=== PATIENT | male | born 1955 | race Caucasian/White ===

== ENCOUNTER → 2016-07-30 | Outpatient (CLI) | payer MEDICARE ==
[~2016-07-30] MED LIST: ALBUTEROL0.09 MG/A2 IH; ALBUTEROL2.5 MG/0.5 INH; ASCRIPTIN325 MG PO; ATORVASTATIN CA10 MG; BACTRIM DS 8001 TA1 PO; CIPRO500 MG PO; COREG12.5 MG PO; DOXYCYCLINE HY100 M3 PO; DUONEB 3 MG/3 ML3 M1 INH; GLYBURIDE5 MG PO; KEFLEX500 MG PO; LASIX20 MG; LASIX20 MG PO; LISINOPRIL5 MG PO; METFORMIN500 MG PO; MEVACOR20 MG PO; NKHM; OXYGEN NAS; PLAVIX75 MG PO; PREDNISONE10 MG PO; PREDNISONE20 M1 PO; PROVENTIL0.09 MG/A1 INH; PULMICORT RES0.25 MG INH; TANZEUM30 MG SC; VIBRAMYCIN100 MG PO
== END ==
LOC: US 08:48
DX: R79.89 Other specified abnormal findings of blood chemistry (principal); I10 Essential (primary) hypertension; E11.51 Type 2 diabetes mellitus with diabetic peripheral angiopathy without gangrene

== ENCOUNTER 2017-03-19 14:39 | Inpatient (IN) | payer MEDICARE ==
[~2017-03-19] VITALS: Ht 187.9 cm; Wt 127.0 kg
--- NOTE | ~2017-03-19 | CON ---
[place], [place] REPORT OF CONSULTATION NAME: ZACH GONZALES [facility] #: [id number] UNIT #: [id number] ROOM: 521 DOCTOR: NIKKI MCCONNELL MD BIRTHDATE: [birth year] DOS: 03/20/2017 HISTORY OF PRESENT ILLNESS: This is a 61-year-old -[place] man with history of coronary artery disease with moderately reduced LV systolic function by an echocardiogram previously. He has coronary artery disease, has moderate obesity, hyperlipidemia, type 2 diabetes mellitus and obstructive sleep apnea and COPD. He has had right knee arthroscopy done and coronary stents deployed in the remote past. He does not smoke, nor does he drink alcoholic beverages. Lives at home with his . He noted increasing cough, chest congestion and some expectoration with the sputum was not discolored. He had a rather acute worsening of shortness of breath. He had no chest pain or palpitations, has not had any swelling of the legs either. No swelling of the legs, has not had any nausea, vomiting or blood in the stools. No chills or shivering. HOME MEDICATIONS: Included Tanzeum, ProAir HFA, aspirin, carvedilol, Lasix, glyburide, Levaquin, lisinopril, Mevacor, metformin and oxygen 3 liters per minute at home by nasal cannula, prednisone 10 mg every other day. PHYSICAL EXAMINATION: GENERAL: This reveals a patient who is very pleasant, alert, moderately obese. His complexion is fine. He has oxygen on and is mildly tachypneic. There is no cyanosis. There is no thyromegaly or finger clubbing is present. VITAL SIGNS: Pulse is regular at 76 beats per minute, blood pressure 154/80. NECK: JVP was normal. HEART: Cardiac auscultation with no murmurs or rubs. No edema in the lower extremity. Pedal pulses were palpable. CHEST: Percussion note was normal. Auscultation revealed moderately diminished breath sounds with expiratory and inspiratory crackles and wheezing. Expiratory phase was significantly prolonged. IMPRESSION: This patient has ischemic cardiomyopathy, but there is no clinical or radiographic evidence of heart failure. I think his symptoms are mostly from exacerbation of chronic obstructive pulmonary disease and I believe a pulmonary consult has been obtained. Current cardiac medication should be continued. [place], [place] REPORT OF CONSULTATION NAME: ZACH GONZALES UNIT #: [id number] ROOM: 521 DOCTOR: NIKKI MCCONNELL MD BIRTHDATE: [birth year] NIKKI MCCONNELL MD CM:CONSTR:REPORT OF CONSULTATION 1238 03/25/17 1836 interface
--- NOTE | ~2017-03-19 | CON ---
[place], [place] REPORT OF CONSULTATION NAME: ZACH GONZALES [facility] #: [id number] UNIT #: [id number] ROOM: 521 DOCTOR: JUSTINA STANLEY MD BIRTHDATE: [birth year] DOS: 03/20/2017 The patient was independently seen and examined in [id number] encounter, history was personally obtained from the patient, physical findings for the patient was also confirmed during today's assessment. All the available labs including the chest x-ray personally reviewed. Assessment and management of the patient was done for today's visit personally as well. The note done by the medical secretary was approved. CONSULTATION REQUESTED BY: Hospitalist services for assessment of the acute exacerbation of COPD. HISTORY OF PRESENT ILLNESS: A 61-year-old white male noted in his usual state of health until beginning of this week. The patient's was noted with acute illness with respiratory symptom. Later on, the patient started having symptoms of coughing, chest congestion and some sputum expectoration. He was noted with shortness breath, was noted significantly increased. Low-grade fever was noted. The cough has been associated with intermittent sputum expectoration. The patient came to the hospital. The patient's symptoms have been noted worse with shortness of breath and others. He has been admitted to the hospital for further medical management and acute exacerbation of COPD. REVIEW OF SYSTEMS: Review of systems for this patient was performed by the medical secretary already and agreed with that. PAST MEDICAL HISTORY: The patient was noted with history of: 1. COPD. 2. Uncomplicated moderate persistent bronchial asthma. 3. Type 2 diabetes mellitus. 4. Obstructive sleep apnea disorder. 5. Coronary artery disease. 6. Ischemic cardiomyopathy. The patient with ejection fraction 30%, last from the past. 7. Moderate obesity. 8. Hypercholesterolemia. PAST SURGICAL HISTORY: 1. Cardiac catheterization and coronary artery stent insertion. 2. Right knee arthroscopy. 3. Fibrobronchoscopy that was done in 2014. SOCIAL HISTORY: The patient is , has 2 children. 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 There was no history of alcohol use or any illicit drug use. FAMILY HISTORY: Both parents have been at the age of 70+ years old, complication for the patient in the mother was noted cerebral hemorrhage and father with complication related to sudden cardiac . MEDICATIONS: Current medications which has been taken by the patient in the [place], [place] REPORT OF CONSULTATION NAME: ZACH GONZALES UNIT #: [id number] ROOM: 521 DOCTOR: MICHELLE SMITH MD,JUSTINA BIRTHDATE: [birth year] home settings were noted as use of temazepam, Proventil HFA inhaler, Coreg, Lasix, glyburide, DuoNeb, lisinopril, lovastatin, metformin, oxygen, CPAP and Symbicort HFA inhaler. DRUG ALLERGIES: No known drug allergies. PHYSICAL EXAMINATION: GENERAL: This is a 61-year-old white male, currently sitting comfortably on the side of the bed without any acute distress at time of assessment. VITAL SIGNS: Height of 6 feet 1 inch, weight of 280 pounds, BMI 35.6. Normal temperature, respiratory rate 18-23, heart rate 67-75, blood pressure 131/74-154/80. Intake 1520, output 1300 mL, pulse oxygen saturation was noted as 93% saturation to an half liter nasal cannula. HEENT: Examination shows head was atraumatic. Eyes nonicterus. NECK: Supple. It was obese. Decreased posterior pharyngeal space, high tongue base and crowding of soft tissue structures. CARDIOVASCULAR: S1, S2 is audible. LUNGS: Noted with moderate decreased breath sounds in the lungs. Scattered expiratory wheezing. There were no crackles. ABDOMEN: Soft, obese, nontender. EXTREMITIES: Noted without any edema, clubbing or cyanosis. LABORATORY DATA: Lactic acid yesterday was noted normal. CBC yesterday was noted as normal. PT/PTT normal. CMP of the patient yesterday, glucose 279, BUN and creatinine was normal. The influenza A and B, nasal washing antigens were noted as normal from yesterday. CBC this morning remains normal. The CMP, patient's glucose 325, sodium 135. Other labs were normal. Chest x-ray 1 view that was done on 03/19/2017 was noted without any acute pulmonary infiltration. IMPRESSION: 1. The patient has been noted current acute exacerbation of bronchial asthma, which has been noted in the past, uncomplicated, moderate, persistent with superimposed acute bronchitis and history of chronic hypoxic respiratory failure, use of oxygen. 2. History of obstructive sleep apnea disorder. 3. Chronic obesity. There was no evidence of acute pneumonia, uncontrolled diabetes mellitus for this patient was also noted on admission as well. PLAN OF MANAGEMENT: From the pulmonary standpoint, the patient could be discharged home on tapering dose of prednisone and oral antibiotics for the patient to be taken. Continue his home medication including nebulizer treatment q.4-6h. to improve the respiratory symptom. Outpatient followup to be made in the office for further assessment in case of other problems. The patient could use his CPAP after resolution of the acute symptoms occurred. Thanks for allowing me to participate in the care of this patient. [place], [place] REPORT OF CONSULTATION NAME: ZACH GONZALES UNIT #: [id number] ROOM: 521 DOCTOR: JUSTINA STANLEY MD BIRTHDATE: [birth year] JUSTINA MARTINEZ MD CM:CONSTR:REPORT OF CONSULTATION 1107 03/20/17 1351 interface
--- NOTE | ~2017-03-19 | CON ---
[place], [place] REPORT OF CONSULTATION NAME: ZACH GONZALES [facility] #: [id number] UNIT #: [id number] ROOM: 521 DOCTOR: SHANIQUA REAVES DO BIRTHDATE: [birth year] DOS: 03/20/2017 REASON FOR CONSULTATION: COPD exacerbation. CHIEF COMPLAINT: Shortness of breath. HISTORY OF PRESENT ILLNESS: The patient is a 61-year-old male who presented to the ER last night with shortness of breath and cough. He states the symptoms have been present for several days now. His had been seen in the office last week with a similar respiratory complaint and she was treated by Dr. Martinez. The patient states that his symptoms have worsened over the past couple of nights and he has been having more sputum production. He denies fevers, but has been generally feeling unwell with malaise and tiredness. Otherwise, he states that his symptoms seem to have improved quite significantly since his admission from the ER. PAST MEDICAL HISTORY: Anemia, asthma, CAD, CHF, cholelithiasis, diverticulosis, morbid obesity, thrombocytopenia with hypersplenism. PAST SURGICAL HISTORY: History of cardiac catheterization and history of knee surgery. SOCIAL HISTORY: Nonsmoker, nondrinker, does not use any drugs. FAMILY HISTORY: Father had an [place] in his 50s and his mother had a cerebral aneurysm. DRUG ALLERGIES: No known drug allergies. HOME MEDICATIONS: Tanzeum 30 mg weekly, Proventil as needed, Coreg 25 b.i.d., Cipro 500 b.i.d., doxycycline 100 b.i.d., Lasix 20 mg b.i.d., glyburide 10 b.i.d., lisinopril 10 daily, lovastatin 20 mg daily, metformin 1000 b.i.d. plus 500 daily. REVIEW OF SYSTEMS: GENERAL: Reports chills, but denies weight loss, weight gain. HEENT: Denies vision change, hearing change, nasal discharge, mouth swelling, congestion, throat pain, or dysphagia. CARDIOVASCULAR: Reports chest tightness, but denies angina. Denies palpitations. Denies lower extremity edema. RESPIRATORY: Reports shortness of breath, cough, wheezing, dyspnea on exertion and sputum production, but denies any hemoptysis. ABDOMINAL: Denies abdominal pain, nausea, vomiting, diarrhea. GENITOURINARY: Denies any dysuria, hematuria. NEUROLOGIC: Denies lightheadedness, dizziness. PSYCHIATRIC: Denies depression, anxiety, substance abuse. ENDOCRINE: Denies any polydipsia, heat or cold intolerance. SKIN: Denies any new lesions or ulcerations. PHYSICAL EXAMINATION: [place], [place] REPORT OF CONSULTATION NAME: ZACH GONZALES UNIT #: [id number] ROOM: 521 DOCTOR: SHANIQUA REAVES DO BIRTHDATE: [birth year] VITAL SIGNS: Temperature 98.7, pulse 75, respiratory rate 20, blood pressure 154/80, bedside pulse oximetry 93% on 2.5 L nasal cannula. GENERAL: The patient is awake, alert, oriented, in no acute distress. HEART: Regular rate and rhythm. No gallops or murmur. HEAD: Normocephalic, atraumatic. EYES: No lesions, ulcerations, not icteric. ENT: No scars, masses, or drainage. NECK: Without masses, supple and nontender. LUNGS: Some cough, scattered wheezes with diminishing breath sounds, but no rhonchi, rales or crackles. ABDOMEN: Soft, nontender, nondistended. EXTREMITIES: No clubbing, no erythema, no edema. NEUROLOGIC: Grossly intact. Ambulates well without any focal neuro deficits. PSYCHOLOGICAL: Good historian. Good recent memory and remote memory. SKIN: No rashes, no ulcerations. LABORATORY DATA: WBC 5.4, HGB 14.5, HCT 41.0, and platelet count is 83. Sodium 135, potassium 4.5, chloride 101, carbon dioxide 22, BUN 19, creatinine 1.12, GFR is more than 60. Glucose is 325, A1c 8.3. Vitamin B12 359, vitamin D 16.1, folate . Blood cultures pending. RADIOLOGY: Chest x-ray read as hyperaerated lungs without acute pulmonary disease per radiology. ASSESSMENT: 1. Acute respiratory failure, likely from acute bronchitis superimposed on chronic asthma. 2. Chronic obstructive pulmonary disease. 3. Diabetes mellitus type 2. 4. Hyperlipidemia. 5. Congestive heart failure. TREATMENT PLAN: We will continue with the current plan with treatment with Levaquin and steroids. The patient has improved significantly in a short time that he has been here and he is okay to be discharged today, actually continuing with the Levaquin and prednisone at home. Otherwise, if any further details are needed, please see Dr. Martinez's note. SHANIQUA REAVES DO [place], [place] REPORT OF CONSULTATION NAME: ZACH GONZALES UNIT #: [id number] ROOM: 521 DOCTOR: SHANIQUA REAVES DO BIRTHDATE: [birth year] JUSTINA MARTINEZ MD CM:CONSTR:REPORT OF CONSULTATION 1106 03/20/17 1207 interface
[2017-03-19 14:42] VITALS: BP 162/88
[2017-03-19 15:36] LABS: BASO % 0.2 % (0.0-1.0); EOS # 0.1 10*3/uL (0.0-0.4); EOS % 0.7 % (1.0-4.0); HEMATOCRIT 42.3 % (42.0-52.0); HEMOGLOBIN 14.8 g/dl (14.0-18.0); LYMPH # 1.7 10*3/uL (1.3-4.4); LYMPH % 19.8 % (27.0-41.0); MEAN CORPUSCULAR HGB 32.2 pg (27.0-31.0); MEAN PLATELET VOLUME 9.8 fl (9.6-12.3); MONO # 0.6 10*3/uL (0.1-1.0); MONO % 6.9 % (3.0-9.0); PLATELET COUNT AUTOMATED 82 10*3/uL (130-400); RED CELL DISTRI WIDTH 13.6 % (0-14.5); WHITE BLOOD COUNT 8.4 10*3/uL (4.8-10.8)
[2017-03-19 15:45] LABS: ACT PARTIAL THROMBO TIME 26.9 SECONDS (20.8-31.5)
[2017-03-19 15:51] LABS: ALBUMIN 3.4 gm/dl (3.1-4.5); ALKALINE PHOSPHATASE 70 U/L (45-117); BUN 19 mg/dl (7-24); CHLORIDE 104 mmol/L (98-107); CREATININE 1.22 mg/dL (0.70-1.30); LIPASE 257 U/L (73-393); POTASSIUM 4.1 mmol/L (3.5-5.1); SGOT/AST 15 IU/L (3-35); SGPT/ALT 37 U/L (12-78); SODIUM 137 mmol/L (136-145); TOTAL PROTEIN 7.2 gm/dL (6.4-8.2)
[2017-03-19 15:53] LABS: TROPONIN I < 0.015 ng/ml (<0.045)
[2017-03-19 16:03] VITALS: BP 139/71
[2017-03-19 17:03] VITALS: BP 141/83
[2017-03-19 17:30] VITALS: BP 152/90
--- NOTE | 2017-03-19 18:00 | NUR ---
A 61, admitted to 5E, under the services of CEASAR Herrera DO with a diagnosis of COPD EXACERBATION. Chief complaint is SOB. Patient arrived via bed from ER. Monitor applied. Initial assessment completed. Vital signs taken and recorded. CEASAR HERRERA DO notified of admission to the unit. Orders received. See assessment for past medical history, medications and allergies. Patient and/or family oriented to unit. [facility] visitation policy reviewed. Clothing/patient valuable form completed. JOSEF PHILLIPS
--- NOTE | 2017-03-19 18:04 | NUR ---
SPOKE WITH DR. GEE REGARDING CONSULT. HE STATES HE WILL BE OOT STARTING TOMORROW BUT DR. BALL IS COVERING. HE ALSO STATED HE WILL SPEAK TO RAYSHAWN POTTER REGARDING CONSULT.
--- NOTE | 2017-03-19 18:04 | NUR ---
DR. MARTINEZ NOTIFIED OF CONSULT.
[2017-03-19] MEDS ORDERED: SYMB160 INH (18:33)
[2017-03-19] MEDS ORDERED: PROAIR HFA8.5 GM INH (18:33)
[2017-03-19] MEDS ORDERED: ASPIRIN ADULT L81 M1 PO (18:34)
--- NOTE | 2017-03-19 19:45 | NUR ---
PT AWAKE AND ALERT, NO COMPLAINTS AT THIS TIME.
--- NOTE | 2017-03-19 19:55 | NUR ---
DR. Raymond PADILLA CALLED AT THIS TIME TO REQUEST PATIENTS HOMEMEDICATIONS TO BE ORDERED. PER DR. PADILLA SHE WILL ORDERE THESE IN JUST A FEW MINUTES.
[2017-03-19 20:00] VITALS: BP 151/93
[2017-03-20] VITALS: BP 131/70
[2017-03-20 06:52] LABS: HEMOGLOBIN 14.5 g/dl (14.0-18.0); LYMPH # 1.1 10*3/uL (1.3-4.4); LYMPH % 19.4 % (27.0-41.0); MEAN CELL VOLUME 90.9 fl (80.0-94.0); MEAN CORPUSCULAR HGB 32.2 pg (27.0-31.0); MEAN CORPUSCULAR HGB CONC 35.4 g/dl (33.0-37.0); MEAN PLATELET VOLUME 9.7 fl (9.6-12.3); MONO # 0.1 10*3/uL (0.1-1.0); MONO % 1.7 % (3.0-9.0); NEUT # 4.3 10*3/uL (2.3-7.9); NEUT % 78.5 % (47.0-73.0); PLATELET COUNT AUTOMATED 83 10*3/uL (130-400); RED BLOOD COUNT 4.51 10*6/uL (4.50-5.90); RED CELL DISTRI WIDTH 13.1 % (0-14.5); WHITE BLOOD COUNT 5.4 10*3/uL (4.8-10.8)
[2017-03-20 07:31] LABS: ALBUMIN 3.5 gm/dl (3.1-4.5); ALKALINE PHOSPHATASE 70 U/L (45-117); BUN 19 mg/dl (7-24); CHLORIDE 101 mmol/L (98-107); CHOLESTEROL 113 mg/dL (<200); POTASSIUM 4.5 mmol/L (3.5-5.1); SODIUM 135 mmol/L (136-145); TRIGLYCERIDES 53 mg/dl (<150); VLDL CHOLESTEROL 11 mg/dL (6-40)
[2017-03-20 07:39] LABS: CREATININE 1.12 mg/dL (0.70-1.30); FREE T4 1.23 ng/dl (0.76-1.46); HDL CHOLESTEROL 45 mg/dl (40-60); LDL CHOLESTEROL 57 mg/dL (9-159); PHOSPHOROUS 2.9 mg/dL (2.5-4.9); SGOT/AST 19 IU/L (3-35); SGPT/ALT 40 U/L (12-78); THYROID STIM HORMONE (HS) 0.396 uIU/ml (0.358-4.75); TOTAL PROTEIN 7.2 gm/dL (6.4-8.2)
[2017-03-20 07:51] LABS: VITAMIN D, 25-HYDROXY 16.1 ng/mL (30-100)
[2017-03-20 08:00] VITALS: BP 154/80
--- NOTE | 2017-03-20 09:00 | NUR ---
Web Merchandiser in to talk to patient. Patient states lives at home with . There are few steps in the home. Physician: sunny tillman Pharmacy: [facility] health services: none Patient's level of ADLs: INDEPENDENT Patient has working utilities: all working DME: cpap Follow-up physician's appointment after d/c: will be made by hosplitalist nurse director upon discharge Does patient want to access PORTAL?: no Discharge plan discussed with patient, patient lives at home with his , he is independent in adls and ambulation, patient states he will be going home with and denies any home needs. ANA CESAR
[2017-03-20] MEDS ORDERED: LEVOFLOXACIN500 MG PO (09:50)
[2017-03-20] MEDS ORDERED: PREDNISONE10 MG PO (09:50)
[2017-03-20 12:00] VITALS: BP 152/87
--- NOTE | 2017-03-20 12:36 | NUR ---
DR. MCCONNELL IN TO SEE PATIENT AND DISCUSS ECHO.
--- NOTE | 2017-03-20 12:57 | NUR ---
PATIENT RESTING IN BED. PATIENT DENIES ANY SOB, DISCOMFORT OR PAIN. PATIENT IS RECEIVING 3LPM VIA NC AND HAS EXP WHEEZES. PATIENT DENIES ANY CHEST PAIN OR DIZZINESS UPON ASSESSMENT. PATIENT IS AMBULATORY. A&OX3, CALL LIGHT WITHIN REACH, HOB ELEVATED. SEE ASSESSMENT.
--- NOTE | 2017-03-20 17:02 | NUR ---
Discharge instructions reviewed with patient/family. Patient receptive and verbalizes understanding. Follow-up care DISCUSSED WITH PATIENT. Written instructions given to patient/family. ANA LAURA HAMMONDS
== END 2017-03-20 17:02 | disposition home or self-care (01) | DRG 871 ==
LOC: ED 14:39 → 5E 16:14 → EDHOLD 16:14 → 5E 16:22
PROVIDERS: Emergency Medicine; Registered Nurse; ADMIT Internal Medicine
DX: A41.9 Sepsis, unspecified organism (principal); J18.9 Pneumonia, unspecified organism; J96.21 Acute and chronic respiratory failure with hypoxia; E44.0 Moderate protein-calorie malnutrition; D69.6 Thrombocytopenia, unspecified; I50.9 Heart failure, unspecified; E66.01 Morbid (severe) obesity due to excess calories; J44.0 Chronic obstructive pulmonary disease with (acute) lower respiratory infection; J44.1 Chronic obstructive pulmonary disease with (acute) exacerbation; R16.1 Splenomegaly, not elsewhere classified; R65.20 Severe sepsis without septic shock; E11.9 Type 2 diabetes mellitus without complications; I25.10 Atherosclerotic heart disease of native coronary artery without angina pectoris; K80.20 Calculus of gallbladder without cholecystitis without obstruction; K57.90 Diverticulosis of intestine, part unspecified, without perforation or abscess without bleeding; J20.9 Acute bronchitis, unspecified; E78.00 Pure hypercholesterolemia, unspecified; D53.9 Nutritional anemia, unspecified; I25.5 Ischemic cardiomyopathy; G47.33 Obstructive sleep apnea (adult) (pediatric); Z95.5 Presence of coronary angioplasty implant and graft; Z82.49 Family history of ischemic heart disease and other diseases of the circulatory system; Z87.891 Personal history of nicotine dependence; Z79.82 Long term (current) use of aspirin; Z79.84 Long term (current) use of oral hypoglycemic drugs; Z79.51 Long term (current) use of inhaled steroids; Z99.81 Dependence on supplemental oxygen; Z79.899 Other long term (current) drug therapy; Z68.30 Body mass index [BMI] 30.0-30.9, adult

== ENCOUNTER → 2017-09-17 | Outpatient (CLI) | payer MEDICARE ==
[~2017-09-17] MED LIST changes: +ASPIRIN ADULT L81 M1 PO; +LEVOFLOXACIN500 MG PO; +PROAIR HFA8.5 GM INH; +SYMB160 INH
== END | disposition home or self-care (01) ==
LOC: RESCLI 01:23
DX: E11.9 Type 2 diabetes mellitus without complications (principal); I10 Essential (primary) hypertension; J44.9 Chronic obstructive pulmonary disease, unspecified; E78.5 Hyperlipidemia, unspecified; M19.90 Unspecified osteoarthritis, unspecified site; E66.9 Obesity, unspecified; R60.9 Edema, unspecified; Z87.891 Personal history of nicotine dependence

== ENCOUNTER → 2018-02-21 | Outpatient (CLI) | payer MEDICARE ==
[~2018-02-21] MED LIST changes: +ADVAIR 250/501 EA INH; +DOXYCYCLINE100 M3 PO; +GLUCOPHAGE1000 MG PO; +GLUCOPHAGE500 M1 PO; +PROVENTIL HFA6.7 GM INH; +TESSALON PERLE100 M1 PO; +TRAD5TAB1 PO; +VYETTA SQ
== END | disposition home or self-care (01) ==
LOC: RESCLI 00:56
DX: E11.65 Type 2 diabetes mellitus with hyperglycemia (principal); I10 Essential (primary) hypertension; J44.9 Chronic obstructive pulmonary disease, unspecified; E78.5 Hyperlipidemia, unspecified; M19.90 Unspecified osteoarthritis, unspecified site; E66.9 Obesity, unspecified; L98.9 Disorder of the skin and subcutaneous tissue, unspecified; E11.51 Type 2 diabetes mellitus with diabetic peripheral angiopathy without gangrene; Z79.899 Other long term (current) drug therapy; Z79.84 Long term (current) use of oral hypoglycemic drugs; Z87.891 Personal history of nicotine dependence

== ENCOUNTER → 2018-03-25 | Outpatient (CLI) | payer MEDICARE | LOC: RESCLI 00:44 | DX: I10 Essential (primary) hypertension (principal); M19.90 Unspecified osteoarthritis, unspecified site; R60.9 Edema, unspecified; J44.1 Chronic obstructive pulmonary disease with (acute) exacerbation; E66.01 Morbid (severe) obesity due to excess calories; I25.2 Old myocardial infarction; G89.29 Other chronic pain; I25.10 Atherosclerotic heart disease of native coronary artery without angina pectoris; E78.5 Hyperlipidemia, unspecified; E11.51 Type 2 diabetes mellitus with diabetic peripheral angiopathy without gangrene; E11.65 Type 2 diabetes mellitus with hyperglycemia; Z79.82 Long term (current) use of aspirin; Z79.4 Long term (current) use of insulin; Z68.39 Body mass index [BMI] 39.0-39.9, adult; Z79.899 Other long term (current) drug therapy; Z87.891 Personal history of nicotine dependence ==

== ENCOUNTER → 2018-04-09 | Outpatient (CLI) | payer MEDICARE | END | disposition home or self-care (01) | LOC: LAB 15:26 | DX: R05 Cough (principal) ==

== ENCOUNTER 2018-06-29 16:50 | Emergency (ER) | payer MEDICARE ==
[~2018-06-29] VITALS: Ht 180.3 cm; Wt 133.4 kg
[2018-06-29 17:47] LABS: BASO # 0.1 10*3/uL (0.0-0.1); BASO % 0.3 % (0.0-1.0); EOS % 0.2 % (1.0-4.0); HEMATOCRIT 45.2 % (42.0-52.0); HEMOGLOBIN 15.8 g/dl (14.0-18.0); LYMPH # 1.6 10*3/uL (1.3-4.4); LYMPH % 9.6 % (27.0-41.0); MEAN CELL VOLUME 96.4 fl (80.0-94.0); MEAN CORPUSCULAR HGB 33.7 pg (27.0-31.0); MEAN PLATELET VOLUME 9.6 fl (9.6-12.3); MONO # 1.1 10*3/uL (0.1-1.0); MONO % 6.9 % (3.0-9.0); NEUT # 13.6 10*3/uL (2.3-7.9); NEUT % 82.7 % (47.0-73.0); PLATELET COUNT AUTOMATED 102 10*3/uL (130-400); RED BLOOD COUNT 4.69 10*6/uL (4.50-5.90); RED CELL DISTRI WIDTH 13.9 % (0-14.5); WHITE BLOOD COUNT 16.5 10*3/uL (4.8-10.8)
[2018-06-29 17:57] LABS: ACT PARTIAL THROMBO TIME 27.8 SECONDS (20.8-31.5); INTERNATIONAL NORM RATIO 1.1 (2.0-3.5)
[2018-06-29 18:12] LABS: ALBUMIN 3.8 gm/dl (3.1-4.5); ALKALINE PHOSPHATASE 66 U/L (45-117); BUN 10 mg/dl (7-24); CHLORIDE 103 mmol/L (98-107); SGOT/AST 14 IU/L (3-35); SGPT/ALT 24 U/L (12-78); SODIUM 135 mmol/L (136-145); TOTAL PROTEIN 7.3 gm/dL (6.4-8.2)
[2018-06-29 18:17] LABS: TROPONIN I < 0.015 ng/ml (<0.045)
[2018-06-29 18:29] LABS: BILIRUBIN NEGATIVE (NEGATIVE); BLOOD NEGATIVE (NEGATIVE); CLARITY SL CLOUDY (CLEAR); COLOR YELLOW (YELLOW); GLUCOSE 1+ (NEGATIVE); KETONE TRACE (NEGATIVE); LEUKO ESTERASE NEGATIVE (NEGATIVE); NITRITE NEGATIVE (NEGATIVE); PH 6.5 (5.0-9.0); UROBILINOGEN 0.2 E.U./dl (0.2-1.0)
[2018-06-29 18:41] LABS: BACTERIA TRACE
== END 2018-06-29 20:00 | disposition short-term general hospital (02) ==
LOC: ED 16:50
PROVIDERS: Emergency Medicine
DX: A41.9 Sepsis, unspecified organism (principal); N45.2 Orchitis; D69.6 Thrombocytopenia, unspecified; I42.9 Cardiomyopathy, unspecified; E11.9 Type 2 diabetes mellitus without complications; I25.10 Atherosclerotic heart disease of native coronary artery without angina pectoris; I50.9 Heart failure, unspecified; J44.9 Chronic obstructive pulmonary disease, unspecified; E78.5 Hyperlipidemia, unspecified; E66.01 Morbid (severe) obesity due to excess calories; Z79.2 Long term (current) use of antibiotics; Z79.899 Other long term (current) drug therapy; Z79.82 Long term (current) use of aspirin; Z79.84 Long term (current) use of oral hypoglycemic drugs; Z87.891 Personal history of nicotine dependence

== ENCOUNTER → 2018-10-02 | Outpatient (CLI) | payer MEDICARE | END | disposition home or self-care (01) | LOC: RESCLI 01:46 | DX: J44.1 Chronic obstructive pulmonary disease with (acute) exacerbation (principal); E11.9 Type 2 diabetes mellitus without complications; I25.2 Old myocardial infarction; E78.5 Hyperlipidemia, unspecified; R60.9 Edema, unspecified; I10 Essential (primary) hypertension; Z87.891 Personal history of nicotine dependence; Z79.899 Other long term (current) drug therapy ==

== ENCOUNTER → 2018-12-23 | Outpatient (CLI) | payer MEDICARE | END | disposition home or self-care (01) | LOC: RESCLI 01:33 | DX: E11.9 Type 2 diabetes mellitus without complications (principal); I10 Essential (primary) hypertension; R60.9 Edema, unspecified; J44.1 Chronic obstructive pulmonary disease with (acute) exacerbation; I25.2 Old myocardial infarction; E78.5 Hyperlipidemia, unspecified; D69.6 Thrombocytopenia, unspecified; Z87.891 Personal history of nicotine dependence; Z79.899 Other long term (current) drug therapy; Z88.8 Allergy status to other drugs, medicaments and biological substances ==

== ENCOUNTER 2019-02-06 15:55 | Emergency (ER) | payer MEDICARE ==
[~2019-02-06] VITALS: Ht 180.3 cm; Wt 124.3 kg
[2019-02-06 16:33] LABS: BASO % 0.4 % (0.0-1.0); EOS # 0.2 10*3/uL (0.0-0.4); EOS % 2.1 % (1.0-4.0); HEMOGLOBIN 15.4 g/dl (14.0-18.0); LYMPH # 2.5 10*3/uL (1.3-4.4); LYMPH % 26.1 % (27.0-41.0); MEAN CELL VOLUME 97.4 fl (80.0-94.0); MEAN CORPUSCULAR HGB 33.3 pg (27.0-31.0); MEAN CORPUSCULAR HGB CONC 34.2 g/dl (33.0-37.0); MEAN PLATELET VOLUME 9.7 fl (9.6-12.3); MONO # 0.7 10*3/uL (0.1-1.0); MONO % 7.1 % (3.0-9.0); NEUT # 6.1 10*3/uL (2.3-7.9); NEUT % 63.9 % (47.0-73.0); PLATELET COUNT AUTOMATED 110 10*3/uL (130-400); RED BLOOD COUNT 4.62 10*6/uL (4.50-5.90); RED CELL DISTRI WIDTH 13.5 % (0-14.5); WHITE BLOOD COUNT 9.5 10*3/uL (4.8-10.8)
[2019-02-06 16:48] LABS: ALBUMIN 3.6 gm/dl (3.1-4.5); ALKALINE PHOSPHATASE 59 U/L (45-117); BUN 18 mg/dl (7-24); CHLORIDE 108 mmol/L (98-107); CREATININE 1.29 mg/dL (0.70-1.30); POTASSIUM 3.9 mmol/L (3.5-5.1); SGOT/AST 15 IU/L (3-35); SGPT/ALT 36 U/L (12-78); SODIUM 139 mmol/L (136-145); TOTAL PROTEIN 6.9 gm/dL (6.4-8.2)
[2019-02-06] MEDS ORDERED: DOXYCYCLINE100 M3 PO ×2 (17:11→17:13)
== END 2019-02-06 17:30 | disposition home or self-care (01) ==
LOC: ED 15:55
PROVIDERS: Nurse Practitioner Family
DX: S81.801A Unspecified open wound, right lower leg, initial encounter (principal); L03.115 Cellulitis of right lower limb; I25.10 Atherosclerotic heart disease of native coronary artery without angina pectoris; J44.9 Chronic obstructive pulmonary disease, unspecified; E78.5 Hyperlipidemia, unspecified; E66.01 Morbid (severe) obesity due to excess calories; I50.9 Heart failure, unspecified; E11.9 Type 2 diabetes mellitus without complications; Z79.2 Long term (current) use of antibiotics; Z79.899 Other long term (current) drug therapy; Z79.82 Long term (current) use of aspirin; Z87.891 Personal history of nicotine dependence; W22.8XXA Striking against or struck by other objects, initial encounter; Y93.89 Activity, other specified; Y92.89 Other specified places as the place of occurrence of the external cause; Y99.8 Other external cause status

== ENCOUNTER → 2019-03-03 | Outpatient (CLI) | payer MEDICARE | END | disposition home or self-care (01) | LOC: RESCLI 01:41 | DX: J44.1 Chronic obstructive pulmonary disease with (acute) exacerbation (principal); I10 Essential (primary) hypertension; R60.9 Edema, unspecified; I25.2 Old myocardial infarction; I25.10 Atherosclerotic heart disease of native coronary artery without angina pectoris; E11.51 Type 2 diabetes mellitus with diabetic peripheral angiopathy without gangrene; E78.5 Hyperlipidemia, unspecified; Z79.84 Long term (current) use of oral hypoglycemic drugs; Z79.899 Other long term (current) drug therapy; Z88.8 Allergy status to other drugs, medicaments and biological substances ==

== ENCOUNTER → 2019-03-18 | Outpatient (CLI) | payer MEDICARE ==
[2019-03-18 08:30] LABS: CREATININE 1.29 mg/dL (0.70-1.30)
== END | disposition home or self-care (01) ==
LOC: LAB 01:15 → CT 09:00 → LAB 09:00
DX: K57.90 Diverticulosis of intestine, part unspecified, without perforation or abscess without bleeding (principal); D73.9 Disease of spleen, unspecified; R16.1 Splenomegaly, not elsewhere classified; K76.0 Fatty (change of) liver, not elsewhere classified; K80.20 Calculus of gallbladder without cholecystitis without obstruction

== ENCOUNTER → 2019-06-16 | Outpatient (CLI) | payer MEDICARE | END | disposition home or self-care (01) | LOC: RESCLI 02:04 | DX: I10 Essential (primary) hypertension (principal); E11.9 Type 2 diabetes mellitus without complications; J44.1 Chronic obstructive pulmonary disease with (acute) exacerbation; I25.2 Old myocardial infarction; E78.5 Hyperlipidemia, unspecified; R60.9 Edema, unspecified; Z91.14 Patient's other noncompliance with medication regimen; Z79.899 Other long term (current) drug therapy; Z87.891 Personal history of nicotine dependence ==

== ENCOUNTER → 2019-10-01 | Outpatient (CLI) | payer MEDICARE | END | disposition home or self-care (01) | LOC: RESCLI 00:30 | DX: S81.801D Unspecified open wound, right lower leg, subsequent encounter (principal); X58.XXXD Exposure to other specified factors, subsequent encounter; J44.9 Chronic obstructive pulmonary disease, unspecified; I10 Essential (primary) hypertension; E11.9 Type 2 diabetes mellitus without complications; R60.9 Edema, unspecified; I25.2 Old myocardial infarction; E78.5 Hyperlipidemia, unspecified; Z11.59 Encounter for screening for other viral diseases; Z87.891 Personal history of nicotine dependence; Z95.828 Presence of other vascular implants and grafts; Z79.84 Long term (current) use of oral hypoglycemic drugs; Z79.82 Long term (current) use of aspirin; Z79.899 Other long term (current) drug therapy; Z98.890 Other specified postprocedural states ==

== ENCOUNTER → 2019-12-31 | Outpatient (CLI) | payer MEDICARE ==
[2019-12-31 11:15] LABS: BASO # 0.1 10*3/uL (0.0-0.1); BASO % 0.8 % (0.0-1.0); EOS # 0.2 10*3/uL (0.0-0.4); EOS % 2.6 % (1.0-4.0); HEMATOCRIT 43.6 % (42.0-52.0); LYMPH # 1.9 10*3/uL (1.3-4.4); LYMPH % 31.1 % (27.0-41.0); MEAN CORPUSCULAR HGB 31.7 pg (27.0-31.0); MEAN CORPUSCULAR HGB CONC 33.7 g/dl (33.0-37.0); MEAN PLATELET VOLUME 9.4 fl (9.6-12.3); MONO # 0.4 10*3/uL (0.1-1.0); MONO % 6.6 % (3.0-9.0); NEUT # 3.6 10*3/uL (2.3-7.9); NEUT % 58.7 % (47.0-73.0); PLATELET COUNT AUTOMATED 100 10*3/uL (130-400); RED BLOOD COUNT 4.64 10*6/uL (4.50-5.90); RED CELL DISTRI WIDTH 13.2 % (0-14.5); WHITE BLOOD COUNT 6.1 10*3/uL (4.8-10.8)
[2019-12-31 11:44] LABS: BUN 12 mg/dl (7-24); CHLORIDE 108 mmol/L (98-107); CHOLESTEROL 121 mg/dL (<200); HDL CHOLESTEROL 41 mg/dl (40-60); LDL CHOLESTEROL 55 mg/dL (9-159); POTASSIUM 4.6 mmol/L (3.5-5.1); SODIUM 137 mmol/L (136-145); TRIGLYCERIDES 124 mg/dl (<150); VLDL CHOLESTEROL 25 mg/dL (6-40)
== END | disposition home or self-care (01) ==
LOC: RESCLI 03:21
PROVIDERS: Internal Medicine; ATTEND Internal Medicine Nephrology
DX: J44.1 Chronic obstructive pulmonary disease with (acute) exacerbation (principal); I10 Essential (primary) hypertension; E11.9 Type 2 diabetes mellitus without complications; R60.9 Edema, unspecified; I25.2 Old myocardial infarction; E78.5 Hyperlipidemia, unspecified; M19.90 Unspecified osteoarthritis, unspecified site; I73.9 Peripheral vascular disease, unspecified; Z79.899 Other long term (current) drug therapy; Z79.82 Long term (current) use of aspirin; Z95.818 Presence of other cardiac implants and grafts; Z87.891 Personal history of nicotine dependence

== ENCOUNTER → 2020-04-14 | Outpatient (CLI) | payer MEDICARE | END | disposition home or self-care (01) | LOC: RESCLI 05:12 | PROVIDERS: ATTEND Internal Medicine Nephrology | DX: J44.1 Chronic obstructive pulmonary disease with (acute) exacerbation (principal); I10 Essential (primary) hypertension; R60.9 Edema, unspecified; I25.2 Old myocardial infarction; E78.5 Hyperlipidemia, unspecified; E11.9 Type 2 diabetes mellitus without complications; Z79.899 Other long term (current) drug therapy; Z79.84 Long term (current) use of oral hypoglycemic drugs ==

== ENCOUNTER → 2020-10-06 | Outpatient (CLI) | payer MEDICARE | END | disposition home or self-care (01) | LOC: RESCLI 00:19 | PROVIDERS: ATTEND Internal Medicine | DX: E11.9 Type 2 diabetes mellitus without complications (principal); I10 Essential (primary) hypertension; J44.1 Chronic obstructive pulmonary disease with (acute) exacerbation; E78.5 Hyperlipidemia, unspecified; Z79.84 Long term (current) use of oral hypoglycemic drugs; Z79.899 Other long term (current) drug therapy; Z95.828 Presence of other vascular implants and grafts; Z98.890 Other specified postprocedural states ==

== ENCOUNTER → 2021-01-05 | Outpatient (CLI) | payer MEDICARE | END | disposition home or self-care (01) | LOC: RESCLI 02:12 | PROVIDERS: ATTEND Internal Medicine | DX: E11.9 Type 2 diabetes mellitus without complications (principal); I10 Essential (primary) hypertension; E78.5 Hyperlipidemia, unspecified; J44.1 Chronic obstructive pulmonary disease with (acute) exacerbation; G47.33 Obstructive sleep apnea (adult) (pediatric); Z12.11 Encounter for screening for malignant neoplasm of colon; Z13.6 Encounter for screening for cardiovascular disorders; Z79.899 Other long term (current) drug therapy; Z98.890 Other specified postprocedural states ==

== ENCOUNTER → 2021-01-13 | Outpatient (CLI) | payer MEDICARE | END | disposition home or self-care (01) | LOC: US 00:01 | PROVIDERS: ATTEND Internal Medicine | DX: Z13.6 Encounter for screening for cardiovascular disorders (principal); Z12.11 Encounter for screening for malignant neoplasm of colon ==

== ENCOUNTER → 2021-03-31 | Outpatient (CLI) | payer MEDICARE | END | disposition home or self-care (01) | LOC: RESCLI 04:37 | PROVIDERS: ATTEND Internal Medicine | DX: E11.9 Type 2 diabetes mellitus without complications (principal); I11.0 Hypertensive heart disease with heart failure; I50.20 Unspecified systolic (congestive) heart failure; J44.1 Chronic obstructive pulmonary disease with (acute) exacerbation; E78.5 Hyperlipidemia, unspecified; Z12.11 Encounter for screening for malignant neoplasm of colon; Z13.6 Encounter for screening for cardiovascular disorders; G47.33 Obstructive sleep apnea (adult) (pediatric); I25.119 Atherosclerotic heart disease of native coronary artery with unspecified angina pectoris; Z79.82 Long term (current) use of aspirin; Z79.84 Long term (current) use of oral hypoglycemic drugs; Z79.899 Other long term (current) drug therapy ==

== ENCOUNTER → 2021-04-24 | Outpatient (CLI) | payer MEDICARE | END | disposition home or self-care (01) | LOC: RAD 11:48 | PROVIDERS: ATTEND Nurse Practitioner Family | DX: R05.9 Cough, unspecified (principal); R68.83 Chills (without fever); Z20.822 Contact with and (suspected) exposure to COVID-19 ==